=== PATIENT | male | born 1955 | race Caucasian/White ===

== ENCOUNTER 2016-11-28 13:26 | Emergency (ER) | payer SELFPAY ==
[~2016-11-28] VITALS: Ht 172.7 cm; Wt 90.0 kg
[~2016-11-28 13:26] MED LIST: BYST10TA2 PO
[2016-11-28 13:33] VITALS: BP 175/101; PULSE 116; RESP 16; TEMP 97.2; O2SAT 96
--- NOTE | 2016-11-28 14:05 | PD ---
HPI Chief Complaint: Bite or Sting Time Seen by Provider: 13:57 Travel History International Travel<30 days: No Contact w/Intl Traveler<30days: No Traveled to known affect area: No History of Present Illness HPI 61-year-old male presents to emergency department concerned about an old bee sting right mid calf that occurred about a month ago. States that he has taken 'doxycycline 500 mg twice a day for 5 days' without resolution. States that he has a 7 out of 10 pain in his calf. He is not bed bound and has had a normal amount of activity throughout the day. Has full range of motion of his lower extremities without weakness. Denies fever, chills, chest pain, shortness of breath, back pain. Patient also states he needs refills of his blood pressure medication. He is unable to tell me who his primary care physician is. He showed me his medication bottle that stated he took amlodipine 5 mg daily says this medication doesn't work for him. Then he told me he takes lisinopril 10mg. PFSH Past Medical History Hypertension: Yes Medical other: Yes (HERPES) Past Surgical History Abdominal Surgery: Yes (HERNIA, MESH) Social History Alcohol Use: Yes (SOCIAL) Tobacco Use: No Substance Use: Yes (ADMIT MARIJUANA) Allergies-Medications (Allergen,Severity, Reaction): Coded Allergies: No Known Allergies (Verified , 11/28/16) Reported Meds & Prescriptions Reported Meds & Active Scripts Active Lisinopril 20 Mg Tab 10 Mg PO DAILY Keflex (Cephalexin) 500 Mg Cap 500 Mg PO Q8H 7 Days Review of Systems Except as stated in HPI: all other systems reviewed are Neg Physical Exam Narrative GENERAL: Well developed well nourished SKIN: Focused skin assessment warm/dry. HEAD: Atraumatic. Normocephalic. CARDIOVASCULAR: Regular rate and rhythm. No murmur appreciated. RESPIRATORY: No accessory muscle use. Clear to auscultation. Breath sounds equal bilaterally. MUSCULOSKELETAL: No obvious deformities. No clubbing. No cyanosis. No edema. Right posterior mid calf: Healed lesion without fluctuance or induration. Homans sign negative. No erythema, edema, exudate. No lymphangitic Spread. NEUROLOGICAL: Awake and alert. No obvious cranial nerve deficits. Motor grossly within normal limits. Normal speech. PSYCHIATRIC: Appropriate mood and affect; Data Data Last Documented VS Vital Signs Date Time Temp Pulse Resp B/P (MAP) Pulse Ox O2 Delivery O2 Flow Rate FiO2 11/28/16 15:24 11/28/16 13:33 97.2 116 16 96 Orders Orders Amlodipine (Norvasc) (11/28/16 14:15) Ed Discharge Order (11/28/16 15:17) MDM Medical Decision Making Medical Screen Exam Complete: Yes Emergency Medical Condition: Yes Differential Diagnosis Bee sting versus cellulitis versus bee sting allergy Hypertension vs accelerated hypertension vs hypertensive emergency Narrative Course 61y/m rather anxious presents to the ED for concern for cellulitis. States he had a bee sting 1 month ago but is still having tenderness over the site. He is concerned that there is a retained stinger. Also would like a refill of his blood pressure medication. He initially requested amlodipine however states that he would prefer lisinopril 10 mg daily. Apparently he takes both. He has had no recent travel, surgery, significant illness, significant medical issues other than HTN, trauma, illicit drug use, or previous vascular issues. Physical exam demonstrated a well-healing lesion without induration or fluctuance. Mild tenderness to palpation. No edema, edema or ecchymosis to the area. I palpated both the left and right calf and both appear to be somewhat tender to palpation but appeared the same size, shape, and color. Because of patient's concern and unlikelihood for follow-up, prescribed antibiotics for prophylaxis though I do not believe there was a significant infection. I discussed with this patient the unlikelihood of infection and he is to follow up with his primary care physician Diagnosis Primary Impression: Hypertension Qualified Codes: I10 - Essential (primary) hypertension Additional Impression: Bee sting Qualified Codes: T63.441A - Toxic effect of venom of bees, accidental ( unintentional), initial encounter Referrals: [facility] Additional Instructions: Use heat and ice for the leg Take antibiotics as prescribed. Scripts Lisinopril (Lisinopril) 20 Mg Tab 10 MG PO DAILY, #30 TAB 0 Refills Prov: Bennie Dubois MD 11/28/16 Cephalexin (Keflex) 500 Mg Cap 500 MG PO Q8H for Infection for 7 Days, #21 CAP 0 Refills Prov: Bennie Dubois MD 11/28/16 Disposition: 01 DISCHARGE HOME Condition: Stable Luann Jiang Nov 28, 2016 14:05
[2016-11-28] MEDS ORDERED: AMLO5TAB2 PO (14:09)
[2016-11-28] MEDS ORDERED: CEPH-460 PO (14:11)
[2016-11-28] MEDS ORDERED: amLODIPine BESYLATE 5 MG TAB PO ONE (14:15)
[2016-11-28 14:36] VITALS: BP 155/87
[2016-11-28] MEDS ORDERED: LISI-515 PO ×2 (15:19→15:21)
== END 2016-11-28 15:25 | disposition home or self-care (01) ==
LOC: PHEFT 13:26
DX: I10 Essential (primary) hypertension (principal); T63.441A Toxic effect of venom of bees, accidental (unintentional), initial encounter
CPT/HCPCS: 99284